=== PATIENT | female | born 1985 | race Caucasian/White ===

== ENCOUNTER 2022-06-02 09:57 | Emergency (ER) | payer MEDICAID ==
[~2022-06-02] VITALS: Ht 162.6 cm; Wt 125.5 kg
[2022-06-02 10:19] VITALS: BP 144/70
== END 2022-06-02 15:53 | disposition left against medical advice (07) ==
LOC: EMS 09:59
DX: R60.0 Localized edema (principal); Z53.21 Procedure and treatment not carried out due to patient leaving prior to being seen by health care provider